=== PATIENT | male | born 1940 | race Caucasian/White ===

== ENCOUNTER 2018-09-12 13:31 | Inpatient (IN) ==
[2018-09-12] MEDS ORDERED: Isovue-370 500 ML BOTTLE IVP ONE (13:41)
--- NOTE | 2018-09-12 13:46 | Emergency Department Note ---
Disposition Clinical Impression: Syncope Qualifiers: Syncope type: unspecified Qualified Code(s): R55 - Syncope and collapse Disposition: Still a Patient General Adult HPI - General Chief complaint: ED Shortness of Breath/Dyspnea Stated complaint: JOSIE Time Seen by Provider: 09/12/18 13:41 Nursing Notes Reviewed: Yes Vital Signs Reviewed: Yes - History of Present Illness HPI Narrative: ED ATTESTATION NOTE: I examined this patient and my medical decision-making was reviewed with the Resident Physician/INTERVENTIONAL SALE CONSULTANT/PA/Student. I have personally performed a face to face evaluation on this patient & I agree with the documented findings, disposition and treatment plan as described except to the extent set forth below. Patient was seen with emergency medicine resident Dr. COURT HANSON please see copy of his note for details of this encounter Briefly: 78-year-old male by EMS from private home sick blood so in the shower this morning. Complains of right hip pain struck his head he is on blood thinners for atrial fibrillation. Also hypertension on oxygen chronically however he saw hypoxic in the ED if with supplemental O2 which would increase. He is nonfocal neurologically. External signs of lower extremity internal/external rotation are limited shortening. Patient be getting imaging studies screening labs EKG which shows a paced rhythm with occasional PVC but no acute ischemic changes. Admission is strongly anticipated. Providing 40 min mses critical care service this patient. Rule out pulmonary embolism as a potential cause for hypotension and hypoxia with loss of consciousness. Disposition pending. - Related Data Home Medications Medication Instructions Recorded Confirmed Aspirin [Lo-Dose Aspirin EC] 81 mg PO DAILY 04/03/17 04/03/17 Atorvastatin [Lipitor] 40 mg PO HS 04/03/17 04/03/17 Cinacalcet [Sensipar] 30 mg PO DAILY 04/03/17 04/03/17 Dorzolamide/Timolol [Cosopt] 1 drop BOTH EYES TID 04/03/17 04/03/17 Lantus Solostar 20 unit SQ DAILY 04/03/17 04/03/17 Metoprolol Tartrate [Lopressor] 12.5 mg PO BID 04/03/17 04/03/17 Novolog Flexpen 5 units SQ BID 04/03/17 04/03/17 Omeprazole 40 mg PO DAILY 04/03/17 04/03/17 Uloric 80 mg PO DAILY 04/03/17 04/03/17 Allergies Allergy/AdvReac Type Severity Reaction Status Date / Time simvastatin AdvReac Intermediate Cramping Verified 04/03/17 15:30 of the Muscles allopurinol AdvReac Mild Cramping Verified 04/03/17 15:27 of the Muscles alteplase AdvReac Mild Cramping Verified 04/03/17 15:27 of the Muscles fenofibrate AdvReac Mild Cramping Verified 04/03/17 15:29 of the Muscles Past Medical History - Past Medical History Medical history: Reports: arthritis, cardiomyopathy, CHF, coronary artery disease, diabetes, dialysis, glaucoma, hyperlipidemia, hypertension, renal disease, syncope - Social History Smoking Status: Former smoker
--- NOTE | 2018-09-12 13:46 | Emergency Department Note ---
Disposition Clinical Impression: Pulmonary fibrosis, ESRD (end stage renal disease), Elevated troponin Syncope Qualifiers: Syncope type: unspecified Qualified Code(s): R55 - Syncope and collapse Dyspnea Qualifiers: Dyspnea type: shortness of breath Qualified Code(s): R06.02 - Shortness of b reath Disposition: Admitted As Inpatient Condition: Fair Referrals: Yoandy Martino [Primary Care Provider] - Forms: ED Satisfaction Letter SOB HPI - General Chief Complaint: ED Shortness of Breath/Dyspnea Stated Complaint: JOSIE Time Seen by Provider: 09/12/18 13:41 Source: patient Mode of arrival: EMS Limitations: no limitations Nursing Notes Reviewed: Yes Vital Signs Reviewed: Yes - History of Present Illness 78-year-old male history of pulmonary fibrosis on 4 L continuous followed by pulmonology, pacemaker placement with atrial fibrillation on anticoagulation who presents with a complaint of syncope and shortness of breath. Reports worsening shortness of breath over the last 3 weeks. He is experiencing worsening exe rtional dyspnea noting to desaturate down to approximately 65% with any type of movement. He has increased his oxygen to 5 L at home with only a mild improvement. Today he was showering and reports he passed out. Witnessed by his . States he slumped forward. He did not fall. Believes this lasted for just several seconds. Denies any chest pain. No history of DVT or PE. He was given 1 DuoNeb treatment in route which she reports improved his symptoms somewhat. No other complaints. Pt Subjective Complaint: shortness of breath Onset (ago): week(s) Context: recent illness Severity: severe Consistency/Duration: intermittent Improves with: rest Worsens with: exertion Known history of: other (Pulmonary fibrosis) Associated symptoms: Reports: cough, sputum production, syncope. Denies: chest pain, fever Treatment prior to arrival: bronchodilator Cough present: Yes Cough Description: Involuntary Cough Frequency: Intermittent Sputum production: Yes Sputum Amount: Small Sputum Color: White - Related Data Home oxygen amount: 4 liters Home Medications Medication Instructions Recorded Confirmed Aspirin [Lo-Dose Aspirin EC] 81 mg PO DAILY 04/03/17 09/12/18 Atorvastatin [Lipitor] 40 mg PO DAILY 04/03/17 09/12/18 Cinacalcet [Sensipar] 30 mg PO DAILY 04/03/17 09/12/18 Febuxostat [Uloric] 80 mg PO DAILY 04/03/17 09/12/18 Insulin ASPART [NovoLOG] 5 unit SQ TIDWM 04/03/17 09/12/18 Omeprazole [PriLOSEC] 40 mg PO DAILY 04/03/17 09/12/18 Apixaban [Eliquis] 2.5 mg PO BID 09/12/18 09/12/18 Latanoprost [Xalatan] 1 drop BOTH EYES HS 09/12/18 09/12/18 Multivitamin,Stress Formula/Zn 1 tab PO DAILY 09/12/18 09/12/18 [Stress B with Zinc Tablet] Allergies Allergy/AdvReac Type Severity Reaction Status Date / Time simvastatin AdvReac Intermediate Cramping Verified 04/03/17 15:30 of the Muscles allopurinol AdvReac Mild Cramping Verified 04/03/17 15:27 of the Muscles alteplase AdvReac Mild Cramping Verified 04/03/17 15:27 of the Muscles fenofibrate AdvReac Mild Cramping Verified 04/03/17 15:29 of the Muscles NAG Allergy See Uncoded 09/12/18 13:47 Comments All systems ED: reviewed and negative except as stated. Constitutional: Denies: fever, chills Cardiovascular: Denies: chest pain Respiratory: Reports: cough, dyspnea, sputum production Gastrointestinal: Denies: abdominal pain, nausea, vomiting, diarrhea Neurological: Denies: headache Past Medical History - Past Medical History Attestation: Yes The following information was validated with the patient. Source: patient Medical history: Reports: arthritis, cardiomyopathy, CHF, coronary artery dise ase, diabetes, dialysis, glaucoma, hyperlipidemia, hypertension, renal disease, syncope - Social History Smoking Status: Former smoker Physical Exam - General Limitations: no limitations General appearance: alert, in no apparent distress - Head Head exam: atraumatic, normocephalic, normal inspection - Eye Eye exam: Present: normal appearance - ENT ENT exam: normal exam - Neck Neck exam: Present: normal inspection, full ROM - Chest Chest inspection: Present: normal inspection, symmetric chest wall rise - Respiratory Respiratory exam: Present: normal lung sounds bilaterally - Cardiovascular Cardiovascular exam: Present: regular rate, normal rhythm, normal heart sounds - Abdominal Exam Abdominal exam: Present: soft, Non-Tender. Absent: tenderness, distention, guarding, rigidity - Extremities Exam Extremities exam: Present: normal inspection, full ROM - Expanded Upper Extremity Exam Shoulder exam: Present: normal inspection, full ROM Arm exam: Present: normal inspection, full ROM Elbow exam: Present: normal inspection, full ROM Forearm/Wrist exam: Present: normal inspection, full ROM Hand exam: Present: normal inspection, full ROM - Expanded Lower Extremity Exam Hip/Pelvis exam: Present: normal inspection, full ROM Upper leg exam: Present: normal inspection, full ROM Knee exam: Present: normal inspection, full ROM Lower leg exam: Present: normal inspection, full ROM Ankle exam: Present: normal inspection, full ROM Foot/toe exam: Present: normal inspection, full ROM - Neurological Exam Neurological exam: Present: alert, other (GCS 15, no focal deficits, moves all extremities equally, follows commands) - Skin Skin exam: Present: warm, dry Course Course Narrative: Patient seen and examined. Vital signs reviewed. Alert and appropriate here. Did have to increase his oxygen requirement here to 6 L. Plan for an EKG, CT head given his fall on anticoagulation, CTA of the chest given worsening hypoxia as well as labs and likely admission. - Reevaluation(s) Reevaluation #1: Imaging labs reviewed. Negative for acute pathology. CT head does not demonstrate a partial fracture previous. CTA with evidence of pulmonary fibrosis however no pulmonary embolism. Labs reveal end-stage renal disease with a creatinine of 4.3 without collecting line abnormalities. Also noted to have a troponin of 0.06 without ischemic findings on EKG. Aspirin given. Admission to the hospitalist for increased oxygen requirement. - Consultations Consultation #1: Discussed this case with the on-call machine shorthand reporter Dr. Wasserman given the patient's underlying ESRD and dialysis requirement. Electrolytes are normal. They will follow the patient in the hospital. Vital Signs Temperature 98.1 F 09/12/18 13:41 Pulse Rate 73 09/12/18 13:41 Respiratory Rate 18 09/12/18 13:41 Blood Pressure 141/76 09/12/18 13:41 O2 Sat by Pulse Oximetry 96 09/12/18 13:41 Temperature 98.1 F 09/12/18 13:41 Pulse Rate 74 09/12/18 16:07 Respiratory Rate 16 09/12/18 16:07 Blood Pressure 140/66 09/12/18 16:07 O2 Sat by Pulse Oximetry 98 09/12/18 16:07 Oxygen Delivery Oxygen Delivery Nasal Cannula Shortness of Breath/Dyspnea - [facility] Narrative Medical decision making narrative: 78-year-old male presenting with increased shortness of breath and oxygen requirement with a syncopal episode and fall 3 days ago. He is alert and nonfocal here. He is on 6 L nasal cannula currently. Imaging labs reviewed. Noted to have interstitial lung disease on CT. Labs reviewed with a troponin of 0.06 in the setting of renal failure. Patient given DuoNeb treatments with improvement of his symptoms. Patient admitted to the hospitalist service. - Lab Data Lab results reviewed: Yes I reviewed the patient's lab results. Result diagrams: 09/12/18 14:05 09/12/18 14:05 Lab Results 09/12/18 09/12/18 09/12/18 Range/Units 14:05 14:05 14:05 WBC 12.4 H (4.3-11.1) K/mcL RBC 3.39 L (4.19-5.50) M/mcL Hgb 10.6 L (12.9-16.9) g/dL Hct 32.5 L (37.5-50.1) % MCV 95.9 (83.0-100.0) fL MCH 31.3 (28.0-33.3) pg MCHC 32.6 (31.6-35.5) g/dL RDW 13.9 (11.5-14.5) % Plt Count 191 (140-400) K/mcL MPV 8.9 L (9.4-12.4) fL Immature Gran % 0.5 (0-4) % Seg Neutrophils % 78.2 % Lymphocytes % 10.3 % Monocytes % 6.2 % Eosinophils % 4.3 % Basophils % 0.5 % Neutrophils # 9.7 H (1.6-8.9) K/mcL Lymphocytes # 1.3 (0.6-4.6) K/mcL Monocytes # 0.8 (0.0-1.3) K/mcL Eosinophils # 0.5 (0.0-0.6) K/mcL Basophils # 0.1 (0.0-0.2) K/mcL PT 18.2 H (9.4-12.1) Seconds INR 1.6 Sodium 139 (136-145) mEq/L Potassium 4.2 (3.5-5.1) mEq/L Chloride 97 L (98-107) mEq/L Carbon Dioxide 28 (23-29) mEq/L BUN 36 H (8-23) mg/dL Creatinine 4.33 H (0.70-1.30) mg/dL Est GFR ( Amer) 16 L (> 60) Est GFR (Non-Af Amer) 13 L (> 60) BUN/Creatinine Ratio 8 (6-26) Glucose 199 H (70-105) mg/dL Calculated Osmolality 302 H (280-300) Calcium 9.4 (8.6-10.3) mg/dL Troponin I 0.06 H* (< 0.04) ng/mL B-Natriuretic Peptide (Less than 100) pg/mL Urine Color (Yellow) Urine Clarity (Clear) Urine pH (5.0-8.0) pH Units Ur Specific Sharon (1.010-1.025) Urine Protein (Neg-Trace) mg/dL Urine Glucose (UA) (Normal) mg/dL Urine Ketones (Negative) mg/dL Urine Blood (Negative) Urine Nitrite (Negative) Urine Bilirubin (Negative) Urine Urobilinogen (Normal) mg/dL Ur Leukocyte Esterase (Negative) Urine Microscopic RBC (0-3) per hpf Urine Microscopic WBC (0-3) per hpf Ur Squamous Epith Cells (None-Few) per lpf Urine Bacteria (None-Few) per hpf Hyaline Casts (None-Few) per lpf 09/12/18 09/12/18 Range/Units 14:05 14:46 WBC (4.3-11.1) K/mcL RBC (4.19-5.50) M/mcL Hgb (12.9-16.9) g/dL Hct (37.5-50.1) % MCV (83.0-100.0) fL MCH (28.0-33.3) pg MCHC (31.6-35.5) g/dL RDW (11.5-14.5) % Plt Count (140-400) K/mcL MPV (9.4-12.4) fL Immature Gran % (0-4) % Seg Neutrophils % % Lymphocytes % % Monocytes % % Eosinophils % % Basophils % % Neutrophils # (1.6-8.9) K/mcL Lymphocytes # (0.6-4.6) K/mcL Monocytes # (0.0-1.3) K/mcL Eosinophils # (0.0-0.6) K/mcL Basophils # (0.0-0.2) K/mcL PT (9.4-12.1) Seconds INR Sodium (136-145) mEq/L Potassium (3.5-5.1) mEq/L Chloride (98-107) mEq/L Carbon Dioxide (23-29) mEq/L BUN (8-23) mg/dL Creatinine (0.70-1.30) mg/dL Est GFR ( Amer) (> 60) Est GFR (Non-Af Amer) (> 60) BUN/Creatinine Ratio (6-26) Glucose (70-105) mg/dL Calculated Osmolality (280-300) Calcium (8.6-10.3) mg/dL Troponin I (< 0.04) ng/mL B-Natriuretic Peptide 709 H (Less than 100) pg/mL Urine Color Yellow (Yellow) Urine Clarity Clear (Clear) Urine pH 8.0 (5.0-8.0) pH Units Ur Specific Sharon 1.005 L (1.010-1.025) Urine Protein >=300 H (Neg-Trace) mg/dL Urine Glucose (UA) 100 H (Normal) mg/dL Urine Ketones Negative (Negative) mg/dL Urine Blood Negative (Negative) Urine Nitrite Negative (Negative) Urine Bilirubin Negative (Negative) Urine Urobilinogen Normal (Normal) mg/dL Ur Leukocyte Esterase Negative (Negative) Urine Microscopic RBC 0-3 (0-3) per hpf Urine Microscopic WBC 0-3 (0-3) per hpf Ur Squamous Epith Cells None Seen (None-Few) per lpf Urine Bacteria None Seen (None-Few) per hpf Hyaline Casts None Seen (None-Few) per lpf - Radiology Data Radiology results reviewed: Yes I reviewed the patient's radiology results. Chest CTA 09/12/18 13:41 IMPRESSION: 1. No evidence of pulmonary embolism 2. Chronic interstitial lung disease/pulmonary fibrosis similar to the comparison exam D/ / Demarcus Cunningham MD / Demarcus Cunningham MD Interpreting Provider: Demarcus Cunningham MD Chest X-Ray 09/12/18 13:41 IMPRESSION: Questionable nondisplaced fracture of the proximal right femur. CT imaging is recommended for complete assessment. Chronic pulmonary interstitial fibrosis. D/ / 09/12/2018 14:32:28 Stephen Wakefield MD / lauren Interpreting Provider: Stephen Wakefield MD Head CT 09/12/18 13:41 IMPRESSION: No acute intracranial abnormality. Sequela of chronic small vessel ischemic disease of the brain. No acute osseous injury of the pelvis or right hip. Enlarged prostate gland with diffuse bladder wall thickening compatible with incomplete distention and chronic bladder outlet obstruction. D/ / 09/12/2018 16:13:17 Stephen Wakefield MD / esteban Interpreting Provider: Stephen Wakefield MD Hip CT 09/12/18 13:41 IMPRESSION: No acute intracranial abnormality. Sequela of chronic small vessel ischemic disease of the brain. No acute osseous injury of the pelvis or right hip. Enlarged prostate gland with diffuse bladder wall thickening compatible with incomplete distention and chronic bladder outlet obstruction. D/ / 09/12/2018 16:13:17 Stephen Wakefield MD / esteban Interpreting Provider: Stephen Wakefield MD Hip X-Ray 09/12/18 13:42 IMPRESSION: Questionable nondisplaced fracture of the proximal right femur. CT imaging is recommended for complete assessment. Chronic pulmonary interstitial fibrosis. D/ / 09/12/2018 14:32:28 Stephen Wakefield MD / lauren Interpreting Provider: Stephen Wakefield MD - EKG Data EKG attestation: Yes I reviewed and interpreted this EKG. EKG results narrative: EKG demonstrates an atrial paced rhythm with PVCs with a rate of 85 bpm. Left axis deviation. Prolonged QRS ration of 134. Other intervals normal. Poor R wave progression. No gross ST elevations or depressions. No acute ischemic findings. No significant changes from previous EKG dated 08/09/12. Rubi - Rubi Situation: Demographics, MOA Background: Presenting Complaint, Relevant PMH, Meds, & Allergies Assessment: Vital Signs, Course and respsone to treatment, Exam Concerns, Patient/Family Expectation, Pertinant Lab Results Recommendation: Barrier(s) to disposition, Recommendation based on pending studies, treatments, or consults Rubi Report Given to: Dr. Tory Venegas Repor Time: 16:48
[2018-09-12] MEDS ORDERED: Ipratropium/Albuterol Neb 3 ML IH ONE (13:49)
[2018-09-12 14:18] LABS: Basophils # 0.1 K/mcL (0.0-0.2); Basophils % 0.5 %; Eosinophils # 0.5 K/mcL (0.0-0.6); Eosinophils % 4.3 %; Hematocrit 32.5 % (37.5-50.1); Hemoglobin 10.6 g/dL (12.9-16.9); Immature Granulocytes % 0.5 % (0-4); Lymphocytes # 1.3 K/mcL (0.6-4.6); Lymphocytes % 10.3 %; Mean Corpuscular HGB Conc 32.6 g/dL (31.6-35.5); Mean Corpuscular Hemoglobin 31.3 pg (28.0-33.3); Mean Corpuscular Volume 95.9 fL (83.0-100.0); Mean Platelet Volume 8.9 fL (9.4-12.4); Monocytes # 0.8 K/mcL (0.0-1.3); Monocytes % 6.2 %; Neutrophils # 9.7 K/mcL (1.6-8.9); Platelet Count 191 K/mcL (140-400); Red Blood Count 3.39 M/mcL (4.19-5.50); Red Cell Distribution Width 13.9 % (11.5-14.5); Segmented Neutrophils % 78.2 %
[2018-09-12 14:26] LABS: INR 1.6; Prothrombin Time 18.2 Seconds (9.4-12.1)
[2018-09-12 14:41] LABS: Calcium 9.4 mg/dL (8.6-10.3); Potassium 4.2 mEq/L (3.5-5.1)
[2018-09-12 14:46] LABS: Troponin I 0.06 ng/mL (< 0.04)
[2018-09-12] MEDS ORDERED: Aspirin 325 MG TABLET PO ONE (14:52)
[2018-09-12 14:56] LABS: Bilirubin,Urine Negative (Negative); Blood,Urine Negative (Negative); Clarity,Urine Clear (Clear); Color,Urine Yellow (Yellow); Glucose,Urine (UA) 100 mg/dL (Normal); Ketones,Urine Negative (Negative); Leukocyte Esterase,Urine Negative (Negative); Nitrite,Urine Negative (Negative); Protein,Urine >=300 mg/dL (Neg-Trace); Specific Gravity,Urine 1.005 (1.010-1.025); Urobilinogen,Urine Normal (Normal)
[2018-09-12 14:59] LABS: Bacteria,Urine None Seen per hpf (None-Few); Hyaline Casts,Urine None Seen per lpf (None-Few); RBC,Urine 0-3 per hpf (0-3); Squamous Epithelial Cell,Urine None Seen per lpf (None-Few); WBC,Urine 0-3 per hpf (0-3)
[2018-09-12] MEDS ORDERED: Naloxone 0.4 MG/ML INJ IVP PRN (16:57)
[2018-09-12] MEDS ORDERED: D5% in Water 1,000 ML IVC PRN (17:00)
[2018-09-12] MEDS ORDERED: Dextrose Gel 15 GM/37.5 ML TUBE PO PRN ×2 (17:00)
[2018-09-12] MEDS ORDERED: *HR* Dextrose 50 % in Water (Syg) 50 ML SYRINGE IVP PRN (17:00)
[2018-09-12] MEDS ORDERED: predniSONE 20 MG TABLET PO ONE (17:03)
--- NOTE | 2018-09-12 17:47 | Internal Med History&Physical ---
Date of Encounter: 09/12/18 Time of Encounter: 17:39 Internal Medicine - H&P: HPI Chief complaint: Shortness of breath Admitted From: Home Plans for Post Hospital Care: Home History of present illness: Mr. Templeton is a 78 year old male with ESRD on HD MWF, DM, Pulmonary fibrosis, chronic respiratory failure on home O2, CAD, Afib with PCM on anticoagulation Patient is seen in company of his He reports he has been having recurrent falls for the past year, as well as tremors. His shortness of breath has been worsening for the past 3 months, with minimal exertion. His O2 saturation has been dropping even with his 4L of home O2 on minimal exertion, and basic house chores and self care has become more difficult. Once he is exerted, he begins to be tremulous and confused, sometimes having urinary incontinence. He is not unconscious during these episodes and there is no tongue biting or post-ictal confusion or amnesia. She states it does not look life a convulsion, but it is worrisome. This morning, his SOB got worse and while taking a shower to come to the ER, he slumped and fell in the shower and she thinks he might have hit his head. he also had a fall in the past week where he landed on his hip, he has had at least 3 falls last year. She denies fever or chills, he has no cough, he has no sick contacts, no worsening leg edema, he has been compliant with medications and HD. He denies chest pain , no n/v/d. Patient denies illicit drug use. He is DNR-CC Work up in ER showed mild leukocytosis , HB at baseline, BUN/Cr is at his baseline, troponin 0.06 (paperwork from prior ER visit for SOB at [facility] 07/2018 showed similar results). Head CT/Hip CT, Chest CTA were unremarkable for new acute findings. The patient will be admitted for acute on chronic respiratory failure likely secondary to PF flare, Syncope and tremulousness Past Med Surg Social Fam HX - Past Medical History Medical history: arthritis, cardiomyopathy, CHF, coronary artery disease, diabetes, dialysis, glaucoma, hyperlipidemia, hypertension, renal disease, syncope Additional medical history: MWF dialysis Psychiatric history: no psych history - Past Surgical History Additional surgical history: toe amputations. carpal tunnel release. trigger finger. 3 Fistulagrams. Left arm fistula - Social History Smoking Status: Former smoker Smokeless Tobacco Status: No Alcohol use: none Drug use: none - Family History Mother Adopted: No Family Member Ethnicity: Non- Living Status: Hx Family Cardiac Disorders: Yes (HTN) Hx Family Respiratory Disorders: No Hx Family Cancer: No Hx Family GI Disorders: No Hx Family Endocrine Disorder: No Hx Family Neuromuscular Disorders: No Hx Family Neurologic Disorders: No Hx Family HEENT Disorders: No Hx Family Autoimmune Disorders: No Internal Medicine - H&P: Meds Aspirin [Lo-Dose Aspirin EC] 81 mg PO DAILY 04/03/17 [History] Atorvastatin [Lipitor] 40 mg PO DAILY 04/03/17 [History] Cinacalcet [Sensipar] 30 mg PO DAILY 04/03/17 [History] Febuxostat [Uloric] 80 mg PO DAILY 04/03/17 [History] Insulin ASPART [NovoLOG] 5 unit SQ TIDWM 04/03/17 [History] Omeprazole [PriLOSEC] 40 mg PO DAILY 04/03/17 [History] Apixaban [Eliquis] 2.5 mg PO BID 09/12/18 [History] Latanoprost [Xalatan] 1 drop BOTH EYES HS 09/12/18 [History] Multivitamin,Stress Formula/Zn [Stress B with Zinc Tablet] 1 tab PO DAILY 09/12/18 [History] Allergy/AdvReac Type Severity Reaction Status Date / Time simvastatin AdvReac Intermediate Cramping Verified 04/03/17 15:30 of the Muscles allopurinol AdvReac Mild Cramping Verified 04/03/17 15:27 of the Muscles alteplase AdvReac Mild Cramping Verified 04/03/17 15:27 of the Muscles fenofibrate AdvReac Mild Cramping Verified 04/03/17 15:29 of the Muscles NAG Allergy See Uncoded 09/12/18 13:47 Comments All Systems PM: A 10-system review of systems was performed and is negative for pertinent findings except as documented above in the HPI. - Constitutional Constitutional: as per HPI - EENT Eyes: as per HPI Ears: as per HPI Nose, mouth and throat: as per HPI - Cardiovascular Cardiovascular ROS IM: as per HPI - Respiratory Respiratory: as per HPI - Gastrointestinal Gastrointestinal: as per HPI - Musculoskeletal Musculoskeletal ROS IM: as per HPI - Integumentary Integumentary IM: as per HPI - Neurological Neurological ROS: as per HPI - Hematologic/Lymphatic Hematologic/Lymphatic: as per HPI - Constitutional Vitals: Temp Pulse Resp BP Pulse Ox 98.1 F 74 16 140/66 98 09/12/18 13:41 09/12/18 16:07 09/12/18 16:07 09/12/18 16:07 09/12/18 16:07 General appearance: Present: A&O X 3, pleasant, no acute distress, obese Exam: see below - Head Head exam: Present: atraumatic - Eye Eye exam: Present: PERRL, conjuntiva pink, sclera anicteric - ENT ENT exam: Present: mucous membranes moist - Neck Neck exam general surgery: Present: normal inspection Additional comments: Carotid bruit on the R - Respiratory Respiratory exam: Present: rales (inspiratory fine crackles), tachypnea. Absent: stridor, wheezes - Cardiovascular Cardiovascular exam: Present: irregular rhythm, +S1, +S2. Absent: diastolic murmur, gallop, rubs, systolic murmur - GI/Abdominal GI/Abdominal exam: Present: normal bowel sounds, soft, no peritoneal signs. Absent: distended, tenderness - Extremities Exam Extremities exam: Present: pedal edema (trace bilateral piting pedal edema, chronic venous stasis changes), warm, radial pulses palpable and symmetrical. Absent: calf tenderness, cyanotic - Neurological Exam Neurological exam: Present: alert, CN II-XII intact, oriented X3, no focal deficits. Absent: pronater drift, facial droop, speech deficit - Skin Skin exam: Present: dry, intact Internal Med - H&P Results - Labs CBC & Chem 7: 09/12/18 14:05 09/12/18 14:05 Labs: Short CBC 09/12/18 Range/Units 14:05 WBC 12.4 H (4.3-11.1) K/mcL Hgb 10.6 L (12.9-16.9) g/dL Hct 32.5 L (37.5-50.1) % Plt Count 191 (140-400) K/mcL Neutrophils # 9.7 H (1.6-8.9) K/mcL BMP 09/12/18 14:05 Sodium 139 Potassium 4.2 Chloride 97 L Carbon Dioxide 28 BUN 36 H Creatinine 4.33 H Glucose 199 H Calcium 9.4 Cardiac Enzymes 09/12/18 Range/Units 14:05 Troponin I 0.06 H* (< 0.04) ng/mL Urine 09/12/18 Range/Units 14:46 Urine Color Yellow (Yellow) Urine Clarity Clear (Clear) Urine pH 8.0 (5.0-8.0) pH Units Ur Specific [place] 1.005 L (1.010-1.025) Urine Protein >=300 H (Neg-Trace) mg/dL Urine Glucose (UA) 100 H (Normal) mg/dL - Impressions ITS Impressions Chest CTA 09/12/18 13:41 IMPRESSION: 1. No evidence of pulmonary embolism 2. Chronic interstitial lung disease/pulmonary fibrosis similar to the comparison exam D/ / Demarcus Cunningham MD / Demarcus Cunningham MD Interpreting Provider: Demarcus uCnningham MD Chest X-Ray 09/12/18 13:41 IMPRESSION: Questionable nondisplaced fracture of the proximal right femur. CT imaging is recommended for complete assessment. Chronic pulmonary interstitial fibrosis. D/ / 09/12/2018 14:32:28 Stephen Wakefield MD / [facility] Interpreting Provider: Stephen Wakefield MD Head CT 09/12/18 13:41 IMPRESSION: No acute intracranial abnormality. Sequela of chronic small vessel ischemic disease of the brain. No acute osseous injury of the pelvis or right hip. Enlarged prostate gland with diffuse bladder wall thickening compatible with incomplete distention and chronic bladder outlet obstruction. D/ / 09/12/2018 16:13:17 Stephen Wakefield MD / [facility] Interpreting Provider: Stephen Wakefield MD Hip CT 09/12/18 13:41 IMPRESSION: No acute intracranial abnormality. Sequela of chronic small vessel ischemic disease of the brain. No acute osseous injury of the pelvis or right hip. Enlarged prostate gland with diffuse bladder wall thickening compatible with incomplete distention and chronic bladder outlet obstruction. D/ / 09/12/2018 16:13:17 Stephen Wakefield MD / [facility] Interpreting Provider: Stephen Wakefield MD Hip X-Ray 09/12/18 13:42 IMPRESSION: Questionable nondisplaced fracture of the proximal right femur. CT imaging is recommended for complete assessment. Chronic pulmonary interstitial fibrosis. D/ / 09/12/2018 14:32:28 Stephen Wakefield MD / [facility] Interpreting Provider: Stephen Wakefield MD - Assessment and plan (1) Leukocytosis Current Visit: Yes Status: Acute Assessment and plan: Etiology unknown at this time Patient recently completed a one week course of steroids (Jul 2018) He has no fever or chills, no rash, no evidence of infection No indication for antibiotics Continue to monitor Qualifiers: Leukocytosis type: unspecified Qualified Code(s): D72.829 - Elevated white blood cell count, unspecified (2) Atrial fibrillation Current Visit: Yes Status: Chronic Assessment and plan: HR controlled Continue home meds Anticoagulated with eliquis, continue same Qualifiers: Atrial fibrillation type: chronic Qualified Code(s): I48.2 - Chronic atrial fibrillation (3) CHF (congestive heart failure) Current Visit: Yes Status: Chronic Assessment and plan: Patient stated hx of CHF No records here Obtain ECHO No pulm edema, he has trace pedal edema, BNP 709 He does not take lasix at home Continue fluid restriction, will give lasix IV as patient still makes urine Follow ECHO report Qualifiers: Heart failure type: unspecified Heart failure chronicity: unspecified Qualified Code(s): I50.9 - Heart failure, unspecified (4) CAD (coronary artery disease) Current Visit: Yes Status: Chronic Assessment and plan: Continue ASA, Statin Qualifiers: Coronary Disease-Associated Artery/Lesion type: [place] artery [place] vs. transplanted heart: [place] heart Associated angina: without angina Qualified Code(s): I25.10 - Atherosclerotic heart disease of [place] coronary artery without angina pectoris (5) Syncope Current Visit: Yes Status: Acute Assessment and plan: Likley due to episodes of worsening hypoxia EKG noted, PVC, LAD, no ST segment changes or TWI Obtain ECHO patient has a carotid bruit, obtain carotid USS head CT unremarkable Patient with no neuro deficits at this time Qualifiers: Syncope type: unspecified Qualified Code(s): R55 - Syncope and collapse (6) Pulmonary fibrosis Current Visit: Yes Status: Chronic Assessment and plan: Patient with known Pulm fibrosis with flare On chronic home O2, has been having increasing O2 requirement Continue O2 Obtain ABG, patient with metanolic alkalosis Start on prednisone po NO indications for steroids at this time Duonebs q4h MELODIE Continuous pulse Ox May need requalification for home O2 prior to discharge Pulm eval if patient is not improving (7) ESRD (end stage renal disease) Current Visit: Yes Status: Chronic Assessment and plan: HD per schedule No current emergent indication for HD, however, renal has been consulted by ER Continue home meds (8) Elevated troponin Current Visit: Yes Status: Chronic Assessment and plan: Chronic troponin from 07/2018 ER visit was 0.054 troponin here 0.06 patient has no chest pain but had syncope Follow ECHO and repeat troponin (9) Diabetes mellitus Current Visit: Yes Status: Chronic Assessment and plan: FS ACHS SSI ADA diet Levemir HS Qualifiers: Diabetes mellitus type: type 2 Diabetes mellitus joint terminal attack controller insulin use: with fpc use Diabetes mellitus complication status: with kidney complications Diabetes mellitus complication detail: with chronic kidney disease Chronic kidney disease stage: on chronic dialysis Qualified Code(s): E11.22 - Type 2 diabetes mellitus with diabetic chronic kidney disease; N18.6 - End stage renal disease; Z79.4 - skilled nursing (current) use of insulin; Z99.2 - Dependence on renal dialysis (10) Frequent falls Current Visit: Yes Status: Acute Assessment and plan: fall precautions PTOT eval - Time Spent With Patient Total time spent is greater than 50% in coordination of care (as documented) at patient's floor/unit and/or counseling patient:
[2018-09-12] MEDS: Ipratropium/Albuterol Neb 3 ML IH SCH (20:42)
[2018-09-12] MEDS ORDERED: Insulin DETEMIR 100 UNIT/ML X5UNITS SQ SCH (21:00)
[2018-09-12] MEDS: Insulin LISPRO 300 UNITS/3 ML VIAL SQ SCH (21:14)
[2018-09-12] MEDS: Apixaban 2.5 MG TABLET PO SCH (21:14)
[2018-09-12] MEDS: Latanoprost 2.5 ML BOTTLE BOTH EYES SCH (21:16)
[2018-09-13] MEDS: Ipratropium/Albuterol Neb 3 ML IH SCH ×7 (00:22→23:19)
--- NOTE | 2018-09-13 01:30 | Event Note ---
Date of Encounter: 09/12/18 Time of Encounter: 21:45 Alerted by pts. nurse JANUARY Anderson that the pts. troponin was 0.06, unchanged from the previous troponin of 0:06. Patient admitted due to syncope likely due to hypoxia, leukocytosis, and acute on chronic respiratory failure likely secondary to PF flare. Echocardiogram ordered. Pt. asymptomatic w/o CP or SOB. Nurse instructed to monitor patient closely overnight and alert me immediately of any adverse changes.
[2018-09-13 06:24] LABS: Basophils % 0.2 %; Eosinophils % 0.2 %; Hematocrit 30.3 % (37.5-50.1); Hemoglobin 9.8 g/dL (12.9-16.9); Immature Granulocytes % 0.4 % (0-4); Lymphocytes # 0.4 K/mcL (0.6-4.6); Lymphocytes % 3.8 %; Mean Corpuscular HGB Conc 32.3 g/dL (31.6-35.5); Mean Corpuscular Hemoglobin 31.5 pg (28.0-33.3); Mean Corpuscular Volume 97.4 fL (83.0-100.0); Mean Platelet Volume 8.9 fL (9.4-12.4); Monocytes # 0.1 K/mcL (0.0-1.3); Monocytes % 0.7 %; Neutrophils # 9.8 K/mcL (1.6-8.9); Platelet Count 173 K/mcL (140-400); Red Blood Count 3.11 M/mcL (4.19-5.50); Red Cell Distribution Width 14.2 % (11.5-14.5); Segmented Neutrophils % 94.7 %
[2018-09-13 06:32] LABS: INR 1.5; Prothrombin Time 17.3 Seconds (9.4-12.1)
[2018-09-13 06:44] LABS: Calcium 9.3 mg/dL (8.6-10.3)
[2018-09-13] MEDS: Insulin LISPRO 300 UNITS/3 ML VIAL SQ SCH ×4 (08:19→21:54)
[2018-09-13] MEDS: Apixaban 2.5 MG TABLET PO SCH ×2 (08:20→21:53)
[2018-09-13] MEDS: Vitamin B Complex/Vit C/Vit E 1 EACH TABLET PO SCH (08:20)
[2018-09-13] MEDS: predniSONE 20 MG TABLET PO SCH (08:20)
[2018-09-13] MEDS: Aspirin Enteric Coated 81 MG Tablet PO SCH (08:20)
[2018-09-13] MEDS ORDERED: Perflutren Lipid Microsphere 1.3 ML in 0.9 % Sodium Chloride 8.7 ML IVP ONE (08:54)
--- NOTE | 2018-09-13 11:48 | Internal Med Progress Note ---
Hospitalist Progress Note - Encounter Date of Encounter: 09/13/18 Time of Encounter: 11:44 - Exam Vitals: Temp Pulse Resp BP Pulse Ox 97.8 F 86 16 121/70 90 09/13/18 07:39 09/13/18 07:39 09/13/18 08:09 09/13/18 07:39 09/13/18 08:09 Exam: see below - Summary of Assessment and Plan Summary of Assessment and Plan: This is a 78 yom with pulm fibrosiss who presented with syncope x2 1)syncope: Pt has end stage pulm fibrosis, told me that his oxygenation dropped more than 20 at times i suspect this is the ause, hwoever, pt does have chest pressure, we will get a stress test, if negative, this is end stage pulm disease. --stress test --out pt monitor --if its due to end stage pulm fibrosis, pt mgiht need pallaitve care. 2)afib: cont eliquis and beta blcoker 3) hx of CHF No in CHF currenlty compensated 4)code: DNR/DNI 5)ESRD: HD per nephrolgoy 6)deiblit: PT/OT to see pt 7)dispo: await stress test and home oxygne reassement TIme: 35min - Time Spent with Patient Total time spent is greater than 50% in coordination of care (as documented) at patient's floor/unit and/or counseling patient: Internal Medicine: Result - Labs CBC & Chem 7: 09/13/18 06:11 09/13/18 06:11 Labs: Short CBC 09/12/18 09/13/18 Range/Units 14:05 06:11 WBC 12.4 H 10.4 (4.3-11.1) K/mcL Hgb 10.6 L 9.8 L (12.9-16.9) g/dL Hct 32.5 L 30.3 L (37.5-50.1) % Plt Count 191 173 (140-400) K/mcL Neutrophils # 9.7 H 9.8 H (1.6-8.9) K/mcL BMP 09/12/18 09/13/18 14:05 06:11 Sodium 139 137 Potassium 4.2 5.0 Chloride 97 L 98 Carbon Dioxide 28 28 BUN 36 H 44 H Creatinine 4.33 H 5.31 H Glucose 199 H 281 H Calcium 9.4 9.3 Cardiac Enzymes 09/12/18 09/12/18 Range/Units 14:05 20:38 Troponin I 0.06 H* 0.06 H* (< 0.04) ng/mL Urine 09/12/18 Range/Units 14:46 Urine Color Yellow (Yellow) Urine Clarity Clear (Clear) Urine pH 8.0 (5.0-8.0) pH Units Ur Specific [place] 1.005 L (1.010-1.025) Urine Protein >=300 H (Neg-Trace) mg/dL Urine Glucose (UA) 100 H (Normal) mg/dL - ABG Interpretation ABG results: PT/INR, D-dimer PT 17.3 Seconds (9.4-12.1) H 09/13/18 06:11 - Impressions Impressions Chest CTA 09/12/18 13:41 IMPRESSION: 1. No evidence of pulmonary embolism 2. Chronic interstitial lung disease/pulmonary fibrosis similar to the comparison exam D/ / Demarcus Cunningham MD / Demarcus Cunningham MD Interpreting Provider: Demarcus Cunningham MD Chest X-Ray 09/12/18 13:41 IMPRESSION: Questionable nondisplaced fracture of the proximal right femur. CT imaging is recommended for complete assessment. Chronic pulmonary interstitial fibrosis. D/ / 09/12/2018 14:32:28 Stephen Wakefield MD / [facility] Interpreting Provider: Stephen Wakefield MD Head CT 09/12/18 13:41 IMPRESSION: No acute intracranial abnormality. Sequela of chronic small vessel ischemic disease of the brain. No acute osseous injury of the pelvis or right hip. Enlarged prostate gland with diffuse bladder wall thickening compatible with incomplete distention and chronic bladder outlet obstruction. D/ / 09/12/2018 16:13:17 Stephen Wakefield MD / [facility] Interpreting Provider: Stephen Wakefield MD Hip CT 09/12/18 13:41 IMPRESSION: No acute intracranial abnormality. Sequela of chronic small vessel ischemic disease of the brain. No acute osseous injury of the pelvis or right hip. Enlarged prostate gland with diffuse bladder wall thickening compatible with incomplete distention and chronic bladder outlet obstruction. D/ / 09/12/2018 16:13:17 Stephen Wakefield MD / [facility] Interpreting Provider: Stephen Wakefield MD Hip X-Ray 09/12/18 13:42 IMPRESSION: Questionable nondisplaced fracture of the proximal right femur. CT imaging is recommended for complete assessment. Chronic pulmonary interstitial fibrosis. D/ / 09/12/2018 14:32:28 Stephen Wakefield MD / [facility] Interpreting Provider: Stephen Wakefield MD Consult Discharge Plan - Plan Referrals: oYandy Martnio [Primary Care Provider] -
--- NOTE | 2018-09-13 12:36 | Nephrology Consult Note ---
Date of Encounter: 09/13/18 Time of Encounter: 12:33 Assessment and Plan (1) ESRD (end stage renal disease) Current Visit: Yes Status: Chronic HD MWF. Renal vitamins. Renal dose medications. Renal diet. Additional dialysis and ultrafiltration as needed. No dialysis is needed today. (2) Dyspnea Current Visit: Yes Status: Acute Per the primary team. Patient has history of poorly fibrosis. He denies chest pain. He does not appear to be in fluid overload. Qualifiers: Dyspnea type: shortness of breath Qualified Code(s): R06.02 - Shortness of breath; R06.00 - Dyspnea, unspecified; R06.01 - Orthopnea (3) Diabetes mellitus Current Visit: Yes Status: Chronic Per the primary team. Qualifiers: Diabetes mellitus type: type 2 Diabetes mellitus assisted insulin use: with corporate manager use Diabetes mellitus complication status: with kidney complications Diabetes mellitus complication detail: with chronic kidney disease Chronic kidney disease stage: on chronic dialysis Qualified Code(s): E11.22 - Type 2 diabetes mellitus with diabetic chronic kidney disease; N18.6 - End stage renal disease; Z79.4 - skilled nursing (current) use of insulin; Z99.2 - Dependence on renal dialysis (4) Elevated troponin Current Visit: Yes Status: Chronic Per the primary team. He denies chest pain. (5) Pulmonary fibrosis Current Visit: Yes Status: Chronic Per the primary team. History of Present Illness - Reason for Consult Consult date: 09/13/18 end stage renal disease - Chief Complaint ESRD - History of Present Illness Mr. Al is a 78-year-old man with a history of end-stage renal disease and prominent fibrosis who presents secondary to shortness of breath. He receives dialysis Friday and Friday via a left upper arm fistula under the direction of Dr. Lundberg and receives dialysis in [place], [place]. The patient presents to the hospital secondary to dyspnea and is being managed by the hospitalist team. He is compliant with his dialysis treatments. He reports that he recently had a fistulogram at [place] about a month ago and that his fistula has been working well since. [facility] was consulted for ongoing management of his end-stage renal disease. The patient denies chest pain, nausea or vomiting. The remainder of his review of systems either negative or stable. Past Med Surg Social Fam HX - Past Medical History Medical history: arthritis, cardiomyopathy, CHF, coronary artery disease, diabetes, dialysis, glaucoma, hyperlipidemia, hypertension, renal disease, syncope Additional medical history: MWF dialysis Psychiatric history: no psych history - Past Surgical History Additional surgical history: toe amputations. carpal tunnel release. trigger finger. 3 Fistulagrams. Left arm fistula. Reversal Shoulder repairs both. Right TKR - Social History Smoking Status: Former smoker Smokeless Tobacco Status: No Alcohol use: rarely Drug use: none - Family History Mother Adopted: No Family Member Ethnicity: Non- Living Status: Age at : 74 Cause of : heart Hx Family Cardiac Disorders: Yes (HTN) Hx Family Respiratory Disorders: No Hx Family Cancer: No Hx Family GI Disorders: No Hx Family Endocrine Disorder: No Hx Family Neuromuscular Disorders: No Hx Family Neurologic Disorders: No Hx Family HEENT Disorders: No Hx Family Autoimmune Disorders: No Father Family Member Ethnicity: Non- Living Status: Age at : 72 Cause of : heart Hx Family Cardiac Disorders: Yes Hx Family Endocrine Disorder: Yes (DM) Medications and Allergies Aspirin [Lo-Dose Aspirin EC] 81 mg PO DAILY 04/03/17 [History] Atorvastatin [Lipitor] 40 mg PO DAILY 04/03/17 [History] Cinacalcet [Sensipar] 30 mg PO DAILY 04/03/17 [History] Febuxostat [Uloric] 80 mg PO DAILY 04/03/17 [History] Insulin ASPART [NovoLOG] 5 unit SQ TIDWM 04/03/17 [History] Omeprazole [PriLOSEC] 40 mg PO DAILY 04/03/17 [History] Apixaban [Eliquis] 2.5 mg PO BID 09/12/18 [History] Latanoprost [Xalatan] 1 drop BOTH EYES HS 09/12/18 [History] Multivitamin,Stress Formula/Zn [Stress B with Zinc Tablet] 1 tab PO DAILY 09/12/18 [History] Allergy/AdvReac Type Severity Reaction Status Date / Time simvastatin AdvReac Intermediate Cramping Verified 04/03/17 15:30 of the Muscles allopurinol AdvReac Mild Cramping Verified 04/03/17 15:27 of the Muscles alteplase AdvReac Mild Cramping Verified 04/03/17 15:27 of the Muscles fenofibrate AdvReac Mild Cramping Verified 04/03/17 15:29 of the Muscles NAG Allergy See Uncoded 09/12/18 13:47 Comments Review of Systems All Systems: reviewed and no additional remarkable complaints except as stated (As documented in history of present illness) Exam - Vital Signs Vital signs: Initial Vital Signs Temp Pulse Resp BP Pulse Ox 98.1 F 73 18 141/76 96 09/12/18 13:41 09/12/18 13:41 09/12/18 13:41 09/12/18 13:41 09/12/18 13:41 Vital Signs - Last 8 Hours Temp Pulse Resp BP Pulse Ox 09/13/18 08:09 16 90 09/13/18 07:39 97.8 F 86 20 121/70 91 09/13/18 05:25 97.6 F 87 17 126/69 99 Intake and Output 09/12/18 09/13/18 09/13/18 23:59 07:59 15:59 Intake Total 0 / 0 Balance 0 / 0 Intake: Oral 0 / 0 Other: Weight 63.1 kg Blood Glucose* 220 282 300 - General Appearance General appearance: well-developed, well-nourished EENT: ATNC Neck: supple Respiratory: rales (Dry rales appreciated in the lung reyes.) Cardiology: no edema, regular rate - Dialysis Access Dialysis Vascular Access: Arteriovenous Fistula (Left upper arm) thrill: Yes bruit: Yes Gastrointestinal: no tenderness Integumentary: warm and dry Neurologic: alert and oriented x3 Additional Comments: He is hard of hearing. Musculoskeletal: no cyanosis Psychiatric: mood/affect appropriate Results - Lab Results 09/13/18 06:11 09/13/18 06:11 Most recent lab results Calcium 9.3 mg/dL (8.6-10.3) 09/13/18 06:11 Consult Discharge Plan - Plan Referrals: Yoandy Martino [Primary Care Provider] -
[2018-09-13] MEDS ORDERED: 0.9 % Sodium Chloride 250 ML IVC PRN (12:43)
[2018-09-13] MEDS: Febuxostat [Uloric] 80 MG PO SCH (13:16)
[2018-09-13] MEDS ORDERED: Insulin DETEMIR 100 UNIT/ML X5UNITS SQ ONE (20:54)
[2018-09-13] MEDS ORDERED: Insulin DETEMIR 100 UNIT/ML X5UNITS SQ SCH (21:00)
[2018-09-13] MEDS: Latanoprost 2.5 ML BOTTLE BOTH EYES SCH (21:54)
[2018-09-14] MEDS ORDERED: Insulin DETEMIR 100 UNIT/ML X5UNITS SQ ONE (03:02)
--- NOTE | 2018-09-14 03:02 | Event Note ---
Date of Encounter: 09/13/18 Time of Encounter: 23:19 Alerted by pts. nurse JANUARY Rios that pt. had been given 6 units of Humalog and 10 units of Levemir. BG at the time was 370. When rechecked at 23:00, BG was 375. Instructed nurse to wait a little while to see if BG responded to long- acting Levemir and recheck in 1 hour. Recheck at 00:47 was 318. 10 units of Levemir ordered. Recheck of BG at 03:00 was 331. Another one-time order of 10 units of Levemir ordered at 03:02 w/continued instructions to keep monitoring BG Q1HR. Instructed nurse to contact me immediately of any adverse changes. Hypoglycemia protocol in place.
[2018-09-14] MEDS: Ipratropium/Albuterol Neb 3 ML IH SCH ×5 (04:22→20:11)
[2018-09-14] MEDS ORDERED: Regadenoson 0.4 MG/5 ML SYRINGE IVP ONE (05:58)
[2018-09-14] MEDS ORDERED: 0.9 % Sodium Chloride 250 ML IVC PRN (08:03)
[2018-09-14] MEDS ORDERED: 0.9 % Sodium Chloride 2,000 ML ONE (08:03)
[2018-09-14] MEDS ORDERED: 0.9 % Sodium Chloride 1,000 ML PRIME SCH (08:15)
[2018-09-14 08:19] LABS: Hematocrit 29.8 % (37.5-50.1); Hemoglobin 9.7 g/dL (12.9-16.9); Mean Corpuscular HGB Conc 32.6 g/dL (31.6-35.5); Mean Corpuscular Hemoglobin 31.5 pg (28.0-33.3); Mean Corpuscular Volume 96.8 fL (83.0-100.0); Mean Platelet Volume 9.1 fL (9.4-12.4); Platelet Count 218 K/mcL (140-400); Red Blood Count 3.08 M/mcL (4.19-5.50)
[2018-09-14 08:24] LABS: Calcium 9.4 mg/dL (8.6-10.3); Potassium 4.5 mEq/L (3.5-5.1)
[2018-09-14] MEDS: Aspirin Enteric Coated 81 MG Tablet PO SCH (08:34)
[2018-09-14] MEDS: Vitamin B Complex/Vit C/Vit E 1 EACH TABLET PO SCH (08:34)
[2018-09-14] MEDS: Apixaban 2.5 MG TABLET PO SCH ×2 (08:34→20:36)
[2018-09-14] MEDS: predniSONE 20 MG TABLET PO SCH (08:34)
[2018-09-14] MEDS: Febuxostat [Uloric] 80 MG PO SCH (08:39)
[2018-09-14] MEDS: Insulin LISPRO 300 UNITS/3 ML VIAL SQ SCH ×6 (08:41→20:36)
--- NOTE | 2018-09-14 09:08 | Discharge Summary ---
- NOTES TO OUTPATIENT PROVIDER Notes to Outpatient Provider: home health, [facility]PC for palllaitive care discussion Orders not resulted at time of discharge: Pending orders 09/14/18 07:00 SP pharm nuclear stress Routine 09/14/18 07:44 Hepatitis B Surface Antibody Stat Hepatitis B Surface Antigen Stat Date of Encounter: 09/14/18 Time of Encounter: 09:06 - Discharge Diagnosis (1) Syncope Priority: Primary Status: Acute Qualifiers: Syncope type: unspecified Qualified Code(s): R55 - Syncope and collapse Hospital course: Mr. Templeton is a 78 year old male with ESRD on HD MWF, DM, Pulmonary fibrosis, chronic respiratory failure on home O2, CAD, Afib with PCM on anticoagulation Patient is seen in company of his He reports he has been having recurrent falls for the past year, as well as tremors. His shortness of breath has been worsening for the past 3 months, with minimal exertion. His O2 saturation has been dropping even with his 4L of home O2 on minimal exertion, and basic house chores and self care has become more difficult. Once he is exerted, he begins to be tremulous and confused, sometimes having urinary incontinence. He is not unconscious during these episodes and there is no tongue biting or post-ictal confusion or amnesia. She states it does not look life a convulsion, but it is worrisome. Pt was kept in [facility] and the pt did not want a work up. Pt refused to have stress test. HE said that pallaive care was seeign the pt, and they told him to come in for evlauation to make sure that no bones were broken. He epxressed interests in hospice, but then does not want it because HD excludes hospice. At this point, we feel this is end stage lung disease from pulm fibrosis, pt doesn't want hospice, pt also doesn't want to go to rehab. Pt is being discharged. He is aware that he is at all risk again. He will go home with home healht. - Time Spent with Patient Total time spent providing and/or coordinating discharge services: - Discharge Medications Home Medications: Aspirin [Lo-Dose Aspirin EC] 81 mg PO DAILY 04/03/17 [History] Atorvastatin [Lipitor] 40 mg PO DAILY 04/03/17 [History] Cinacalcet [Sensipar] 30 mg PO DAILY 04/03/17 [History] Febuxostat [Uloric] 80 mg PO DAILY 04/03/17 [History] Insulin ASPART [NovoLOG] 5 unit SQ TIDWM 04/03/17 [History] Omeprazole [PriLOSEC] 40 mg PO DAILY 04/03/17 [History] Apixaban [Eliquis] 2.5 mg PO BID 09/12/18 [History] Latanoprost [Xalatan] 1 drop BOTH EYES HS 09/12/18 [History] Multivitamin,Stress Formula/Zn [Stress B with Zinc Tablet] 1 tab PO DAILY 09/12/18 [History] Allergies/Adverse Reactions: Allergy/AdvReac Type Severity Reaction Status Date / Time simvastatin AdvReac Intermediate Cramping Verified 04/03/17 15:30 of the Muscles allopurinol AdvReac Mild Cramping Verified 04/03/17 15:27 of the Muscles alteplase AdvReac Mild Cramping Verified 04/03/17 15:27 of the Muscles fenofibrate AdvReac Mild Cramping Verified 04/03/17 15:29 of the Muscles NAG Allergy See Uncoded 09/12/18 13:47 Comments Date of admission: 09/12/18 18:26 Primary care physician: Yoandy Martino Consults: 09/12/18 16:47 Consult to Nephrology [CONS] Stat Consulting Provider: Kidney Cassia/GIANNA/EVE/STERLING Reason for Consult: ESRD on dialysis Time Notified: 16:47 Call Completed: Yes 09/12/18 17:57 Consult to Occupational Therapy [CONS] Stat Comment: Evaluate, develop and implement POC Reason for Consult: recurrent falls Does patient have active BEDREST order?: No Is patient medically & hemodynamically stable?: Yes Consult to Physical Therapy [CONS] Stat Comment: Evaluate, develop and implement POC Reason for Consult: Recurrent falls Does patient have active BEDREST order?: No Is patient medically & hemodynamically stable?: Yes 09/12/18 19:59 Consult to Sheep Clipper [CONS] Routine Reason for SW Consult: [employer]- 4L & Nebulizers, Setup [facility] [place] [facility] for HD, HD MWF with [facility] 09/14/18 08:15 Consult to Dialysis [CONS] ONCE 09/14/18 12:45 Consult to Dialysis [CONS] QMWF 09/16/18 12:45 Consult to Dialysis [CONS] QMWF 09/18/18 12:45 Consult to Dialysis [CONS] QMWF 09/21/18 12:45 Consult to Dialysis [CONS] QMWF 09/23/18 12:45 Consult to Dialysis [CONS] QMWF 09/25/18 12:45 Consult to Dialysis [CONS] QMWF 09/28/18 12:45 Consult to Dialysis [CONS] QMWF 09/30/18 12:45 Consult to Dialysis [CONS] QMWF 10/02/18 12:45 Consult to Dialysis [CONS] QMWF - Constitutional Vitals: Temp Pulse Resp BP Pulse Ox 97.6 F 91 18 100/63 90 09/14/18 07:15 09/14/18 07:15 09/14/18 07:15 09/14/18 07:15 09/14/18 07:15 General appearance: Present: A&O X 3, pleasant, no acute distress, obese Exam: see below - Patient Status Disposition: Home Health Service Condition: Fair - Discharge Instructions Follow Up With: Yoandy Martino [Primary Care Provider] -
[2018-09-14 09:37] LABS: Hepatitis B Surface Antibody < 3.10 mIU/mL
[2018-09-14 09:47] LABS: Hepatitis B Surface Antigen Nonreactive (Nonreactive)
--- NOTE | 2018-09-14 10:10 | Nephrology Progress Note ---
Date of Encounter: 09/14/18 Time of Encounter: 10:07 - Assessment and Plan (1) ESRD (end stage renal disease) Current Visit: Yes Status: Chronic HD MWF. HD in progress for today. Renal vitamins. Renal dose medications. Renal diet. Additional dialysis and ultrafiltration as needed. (2) Pulmonary fibrosis Current Visit: Yes Status: Chronic Per the primary team. (3) Dyspnea Current Visit: Yes Status: Acute Per the primary team. Patient has history of pulmonary fibrosis. He denies ch est pain. He does not appear to be in fluid overload. Qualifiers: Dyspnea type: shortness of breath Qualified Code(s): R06.02 - Shortness of breath; R06.00 - Dyspnea, unspecified; R06.01 - Orthopnea (4) Elevated troponin Current Visit: Yes Status: Chronic Per the primary team. He denies chest pain. (5) Diabetes mellitus Current Visit: Yes Status: Chronic Per the primary team. Qualifiers: Diabetes mellitus type: type 2 Diabetes mellitus wallboard worker insulin use: with fdc use Diabetes mellitus complication status: with kidney complications Diabetes mellitus complication detail: with chronic kidney disease Chronic kidney disease stage: on chronic dialysis Qualified Code(s): E11.22 - Type 2 diabetes mellitus with diabetic chronic kidney disease; N18.6 - End stage renal disease; Z79.4 - weight shifter (current) use of insulin; Z99.2 - Dependence on renal dialysis Subjective Principal diagnosis: difficulty in breathing Interval history: Pt seen and examined during HD, tolerating well. Denies any chest pain. Admits to chronic shortness of breath. No acute events overnight. Objective - Vital Signs Vital signs: Vital Signs Temp Pulse Resp BP Pulse Ox 09/14/18 07:15 97.6 F 91 18 100/63 90 09/14/18 04:22 18 98 09/14/18 04:20 97.5 F L 81 17 109/57 100 09/14/18 00:35 97.9 F 75 19 109/61 99 09/13/18 23:20 18 95 09/13/18 22:31 90 152/77 09/13/18 22:05 93 09/13/18 20:11 18 91 09/13/18 19:59 97.6 F 85 17 175/75 93 09/13/18 16:58 97.6 F 95 18 150/74 92 09/13/18 15:37 18 96 09/13/18 11:38 18 93 Intake and Output 09/13/18 09/14/18 09/14/18 23:59 07:59 15:59 Intake Total 360 / 360 Output Total 500 / 500 450 / 450 Balance -140 / -140 -450 / -450 Intake: Oral 360 / 360 Output: Urine 500 / 500 450 / 450 Other: Meal 1 decaf coffee with creamer Percent of Meal Consumed 60% Blood Glucose* 375 266 - General Appearance General appearance: Present: well-developed, well-nourished EENT: Present: ATNC, hearing intact, vision intact Neck: Present: supple Respiratory: Present: clear Additional Comments: Diminished in bases. Cardiology: Present: no edema, normal S1, normal S2 Dialysis Vascular Access: Arteriovenous Fistula thrill: Yes bruit: Yes Gastrointestinal: Present: normoactive bowel sounds, no tenderness, no guarding Integumentary: Present: no rash, warm and dry Neurologic: Present: alert and oriented x3 Musculoskeletal: Present: no deformities, no erythema Psychiatric: Present: mood/affect appropriate, cooperative - Lab 09/14/18 07:44 09/14/18 07:44 Most recent lab results Calcium 9.4 mg/dL (8.6-10.3) 09/14/18 07:44 Consult Discharge Plan - Plan Referrals: Yoandy Martino [Primary Care Provider] - 09/22/18 8:40 am (please follow up as schedule....)
--- NOTE | 2018-09-14 11:48 | Palliative - Consult Note ---
<[address] S - Last Filed: 09/14/18 14:26> Date of Encounter: 09/14/18 Time of Encounter: 11:42 - Assessment and Plan (1) Goals of care, counseling/discussion Current Visit: Yes Status: Acute Assessment and plan: Had extensive goals of care discussion at bedside about goals of care and patient's wishes. He feels that if he does hospice that he will be sent home to and that he won't get HD. Explained to the pt that he can go home with hospice and still get HD bc he isn't going to hospice for kidney related dz. He does feel that at this time he still wishes to go home with home health and attempt rehab for now. Explained to the pt that he can change his mind at anytime and get hospice. At this time, palliative care will sign off. Please re- consult with any further issues or questions. (2) Syncope Current Visit: Yes Status: Acute Assessment and plan: Likely multifactorial secondary to worsening hypoxia/chronic lung dz vs a fib ECHO on 09/12: LVEF 60%. Mild left ventricular diastolic dysfunction. Normal right ventricular structure and function. No aortic stenosis. Moderate mitral annular calcification No mitral stenosis. No evidence of pulmonary hypertension CT head was negative, EKG negative for ST abnromalities Currently managed by primary. Qualifiers: Syncope type: unspecified Qualified Code(s): R55 - Syncope and collapse (3) Pulmonary fibrosis Current Visit: Yes Status: Chronic Assessment and plan: Known hx of pulmonary fibrosis - managed by primary (4) Dyspnea Current Visit: Yes Status: Acute Assessment and plan: Secondary to IPF Qualifiers: Dyspnea type: shortness of breath Qualified Code(s): R06.02 - Shortness of breath; R06.00 - Dyspnea, unspecified; R06.01 - Orthopnea (5) ESRD (end stage renal disease) Current Visit: Yes Status: Chronic Assessment and plan: On HD MWF (6) Atrial fibrillation Current Visit: Yes Status: Chronic Assessment and plan: Likely contributing to syncope - managed by primary - on eliquis Qualifiers: Atrial fibrillation type: chronic Qualified Code(s): I48.2 - Chronic atrial fibrillation (7) CHF (congestive heart failure) Current Visit: Yes Status: Chronic Assessment and plan: Diastolic - ECHO as above - managed by primary Qualifiers: Heart failure type: unspecified Heart failure chronicity: unspecified Qualified Code(s): I50.9 - Heart failure, unspecified (8) Frequent falls Current Visit: Yes Status: Acute Assessment and plan: NO acute fx noted XR hip 09/12 - Questionable nondisplaced fracture of the proximal right femur. CT imaging is recommended for complete assessment. CT hip 09/12 - No acute osseous injury of the pelvis or right hip. Palliative-CN HPI - Data of Consult Patient: new to practice Consult date: 09/14/18 Requesting Physician: Master Brody Primary Care Provider: Yoandy Martino - Consult Narrative Reason for consult: "patient needs hospice but still wants HD" History of present illness: Mr. Templeton is a 78 year old male with PMH of ESRD on HD MWF, end stage pulmonary fibosis, chronic respiraotry failure on home oxygen, CHF, and a fib. He presented on 09/12 at the request of his home health nurse. He was at home being checked out by nurse, whom he told about a recent fall. He had hip pain from it and she said to go get xrays to rule out fracture. He then wanted to get a shower before coming here and he said he passed out in the shower, hit his head against the shower wall. He was consulted for "needing hospice but wanting HD still." He is evaluated at bedside this morning. He does have complaints of decreasing functional status, he has a hard time completing his ADL's and it takes him a lot of extra time to do anything bc he gets so short of breath. He has also noticed he has had a decreased appetite but didn't note excessive weight loss. He sees [facility] as an outpatiet but hasn't seen them since June, when they gave him a six month prognosis. CC: Master Brody - Time Spent with Patient Time: Total time spent is greater than 50% in coordination of care (as documented) at patient's floor/unit and/or counseling patient: Time with patient: 30 minutes Past Med Surg Social Fam HX - Past Medical History Medical history: arthritis, cardiomyopathy, CHF, coronary artery disease, diabetes, dialysis, glaucoma, hyperlipidemia, hypertension, renal disease, syncope Additional medical history: MWF dialysis Psychiatric history: no psych history - Past Surgical History Additional surgical history: toe amputations. carpal tunnel release. trigger finger. 3 Fistulagrams. Left arm fistula. Reversal Shoulder repairs both. Right TKR - Social History Smoking Status: Former smoker Smokeless Tobacco Status: No Alcohol use: rarely Drug use: none - Family History Mother Adopted: No Family Member Ethnicity: Non- Living Status: Age at : 74 Cause of : heart Hx Family Cardiac Disorders: Yes (HTN) Hx Family Respiratory Disorders: No Hx Family Cancer: No Hx Family GI Disorders: No Hx Family Endocrine Disorder: No Hx Family Neuromuscular Disorders: No Hx Family Neurologic Disorders: No Hx Family HEENT Disorders: No Hx Family Autoimmune Disorders: No Father Family Member Ethnicity: Non- Living Status: Age at : 72 Cause of : heart Hx Family Cardiac Disorders: Yes Hx Family Endocrine Disorder: Yes (DM) Medications and Allergies Aspirin [Lo-Dose Aspirin EC] 81 mg PO DAILY 04/03/17 [History] Atorvastatin [Lipitor] 40 mg PO DAILY 04/03/17 [History] Cinacalcet [Sensipar] 30 mg PO DAILY 04/03/17 [History] Febuxostat [Uloric] 80 mg PO DAILY 04/03/17 [History] Insulin ASPART [NovoLOG] 5 unit SQ TIDWM 04/03/17 [History] Omeprazole [PriLOSEC] 40 mg PO DAILY 04/03/17 [History] Apixaban [Eliquis] 2.5 mg PO BID 09/12/18 [History] Latanoprost [Xalatan] 1 drop BOTH EYES HS 09/12/18 [History] Multivitamin,Stress Formula/Zn [Stress B with Zinc Tablet] 1 tab PO DAILY 09/12/18 [History] Allergy/AdvReac Type Severity Reaction Status Date / Time simvastatin AdvReac Intermediate Cramping Verified 04/03/17 15:30 of the Muscles allopurinol AdvReac Mild Cramping Verified 04/03/17 15:27 of the Muscles alteplase AdvReac Mild Cramping Verified 04/03/17 15:27 of the Muscles fenofibrate AdvReac Mild Cramping Verified 04/03/17 15:29 of the Muscles NAG Allergy See Uncoded 09/12/18 13:47 Comments - Constitutional Constitutional ROS PAL: decreased appetite, fatigue, frequent falls - Cardiovascular Cardiovascular ROS: no chest pain - Respiratory Respiratory: dyspnea, dyspnea on exertion - Gastrointestinal Gastrointestinal: no nausea, no vomiting - Genitourinary Genitourinary ROS male: difficulty urinating - Musculoskeletal Musculoskeletal ROS IM: arthralgias - Neurological Neurological ROS: frequent falls Palliative Care-Exam - Constitutional Vitals: Temp Pulse Resp BP Pulse Ox 97.6 F 91 18 100/63 90 09/14/18 07:15 09/14/18 07:15 09/14/18 07:15 09/14/18 07:15 09/14/18 07:15 General appearance: Present: obese - Head Head Exam: Present: atraumatic, normal inspection, normocephalic - Eye Eye exam: Present: normal appearance, sclera anicteric - ENT ENT exam: Present: mucous membranes moist - Respiratory Respiratory exam: Present: decreased breath sounds, prolonged expiratory phase - Expanded Respiratory Exam Location: decreased breath sounds: Upper, Lower, Left, Right - Cardiovascular Cardiovascular exam: Present: irregular rhythm. Absent: JVD - GI/Abdominal Exam GI/Abdominal exam: Present: soft. Absent: guarding, tenderness - Extremities Exam Extremities exam: Present: normal capillary refill, pedal edema. Absent: tenderness - Neurological Exam Neurological exam: Present: alert, CN II-XII intact, oriented X3 - Psychiatric Psychiatric exam: Present: normal affect, normal mood - Skin Skin exam: Present: dry, normal color Internal Medicine - CN: Reslt - Labs CBC & Chem 7: 09/14/18 07:44 09/14/18 07:44 Labs: Short CBC 09/14/18 Range/Units 07:44 WBC 18.0 H D (4.3-11.1) K/mcL Hgb 9.7 L (12.9-16.9) g/dL Hct 29.8 L (37.5-50.1) % Plt Count 218 (140-400) K/mcL BMP 09/14/18 07:44 Sodium 135 L Potassium 4.5 Chloride 95 L Carbon Dioxide 26 BUN 59 H Creatinine 6.55 H Glucose 278 H Calcium 9.4 - ABG Interpretation ABG results: PT/INR, D-dimer PT 17.3 Seconds (9.4-12.1) H 09/13/18 06:11 - Impressions Impressions Echocardiogram 09/12/18 17:02 Impressions: LVEF 60%. Mild left ventricular diastolic dysfunction. Normal right ventricular structure and function. No aortic stenosis. Moderate mitral annular calcification No mitral stenosis. No evidence of pulmonary hypertension. Left Ventricular Wall Motion: Rest Echo Findings All wall segments showed normal motion. Findings: Study Quality * Technically sub-optimal due to poor echocardiographic windows. ECG Findings * Normal sinus rhythm. Left Ventricle * LVEF 60%. * Mild left ventricular diastolic dysfunction. Right Ventricle * Normal right ventricular structure and function. Left Atrium * Mildly dilated left atrium. Right Atrium * Normal right atrial size. Interatrial Septum * Interatrial septum not well evaluated. Aortic Valve * Aortic valve not well visualized. * No aortic regurgitation. * No aortic stenosis. Mitral Valve * Moderate mitral annular calcification * No mitral regurgitation. * No mitral stenosis. Tricuspid Valve * Trace tricuspid regurgitation. * No tricuspid stenosis. * Normal tricuspid valve structure. * No evidence of pulmonary hypertension. Pulmonic Valve * Pulmonic valve not well visualized. Aorta * Normally sized aortic root. Pericardium * The pericardium appears normal. IVC * The IVC is not well evaluated. Pulmonary Artery * Pulmonary artery not well visualized. Consult Discharge Plan - Plan Referrals: Yoandy Martino [Primary Care Provider] - 09/22/18 8:40 am (please follow up as schedule....) Palliative Quality Palliative Quality: Screen for Code Status: Yes, Screen for Goals of Care: Yes, Screen for Pain: Yes, If Pain Regimen Started, Initiate Bowel Regimen: NA, Screen for Nausea/Vomitting: Yes Code Status: 09/12/18 16:57 Resuscitation Status: Active [RES] Routine Comment: Resuscitation Status: Full Code Resuscitation Status: Active [RES] Routine Comment: Resuscitation Status: DNR-Comfort Care Palliative Scale - Palliative Performance Scale How ambulatory is this patient?: Mainly in bed What is patient's level of activity and evidence of disease?: Unable to do most activity, Extensive disease How much self-care assistance does patient require?: Mainly assistance How much oral intake does the patient have?: Normal or reduced What is this patient's level of consciousness?: Full Palliative Performance Score: 60 % <Doreen Rock - Last Filed: 09/14/18 16:25> Date of Encounter: 09/14/18 Palliative-CN HPI - Data of Consult Requesting Physician: Master Brody Primary Care Provider: Yoandy Martino - Consult Narrative History of present illness: Mr. Templeton is a 78 year old male CC: Master Villanuevax - Time Spent with Patient Time: Total time spent is greater than 50% in coordination of care (as documented) at patient's floor/unit and/or counseling patient: Palliative Care-Exam - Constitutional Vitals: Temp Pulse Resp BP Pulse Ox 97.5 F L 91 18 131/73 92 09/14/18 12:44 09/14/18 07:15 09/14/18 15:36 09/14/18 12:44 09/14/18 15:36 Internal Medicine - CN: Reslt - Labs CBC & Chem 7: 09/14/18 07:44 09/14/18 07:44 Labs: Short CBC 09/14/18 Range/Units 07:44 WBC 18.0 H D (4.3-11.1) K/mcL Hgb 9.7 L (12.9-16.9) g/dL Hct 29.8 L (37.5-50.1) % Plt Count 218 (140-400) K/mcL BMP 09/14/18 07:44 Sodium 135 L Potassium 4.5 Chloride 95 L Carbon Dioxide 26 BUN 59 H Creatinine 6.55 H Glucose 278 H Calcium 9.4 - ABG Interpretation ABG results: PT/INR, D-dimer PT 17.3 Seconds (9.4-12.1) H 09/13/18 06:11 - Attending Attestation I performed a history and physical examination of the patient and discussed his management with the resident. I reviewed the residents note and agree with the documented findings and plan of care, except as follow: 78 years old male with history of ESRD on hemodialysis, and end-stage pulmonary fibrosis. Patient was examined in dialysis, on nasal cannula, stated to be feeling well. He stated that his breathing is okay as long as he does not try to move or exert himself, otherwise, his saturation drops so low that he passes out and falls. He presented after several episodes of fall at home. Complaining of pain on his left hip, CT exam showed no fracture. Discussed his current medical condition, trajectory of illness, treatment options and prognosis, as well as goals of care. He desires no intubation and no CPR, he decided to avoid any invasive measures. Patient is aware that his pulmonary fibrosis is terminal, but he stated he still wants to try to improve his strength and his breathing. Patient was seen today but PT and qualifies for subacute rehabilitation. As per patient he would like the short-term rehabilitation and return home with home-health. Patient made aware that he is hospice diagnosis is pulmonary fibrosis, and as such on hospice he can continue dialysis if he wishes so. However, patient is not ready for hospice at this time. Hip Pain: Tyleneol 600mg q4hrs prn Goals of care are clear, and there are no symptoms managed by palliative care. Palliative care signing off at this time please reconsult as needed. Palliative Quality Code Status: 09/12/18 16:57 Resuscitation Status: Active [RES] Routine Comment: Resuscitation Status: Full Code Resuscitation Status: Active [RES] Routine Comment: Resuscitation Status: DNR-Comfort Care
--- NOTE | 2018-09-14 17:22 | Electrocardiograph Report ---
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
[2018-09-14] MEDS: Latanoprost 2.5 ML BOTTLE BOTH EYES SCH (20:37)
[2018-09-15] MEDS: Ipratropium/Albuterol Neb 3 ML IH SCH ×7 (00:09→23:56)
[2018-09-15] MEDS: Vitamin B Complex/Vit C/Vit E 1 EACH TABLET PO SCH (08:23)
[2018-09-15] MEDS: predniSONE 20 MG TABLET PO SCH (08:23)
[2018-09-15] MEDS: Apixaban 2.5 MG TABLET PO SCH ×2 (08:23→20:11)
[2018-09-15] MEDS: Aspirin Enteric Coated 81 MG Tablet PO SCH (08:23)
[2018-09-15] MEDS: Febuxostat [Uloric] 80 MG PO SCH (08:24)
[2018-09-15] MEDS: Insulin LISPRO 300 UNITS/3 ML VIAL SQ SCH ×7 (08:26→20:12)
--- NOTE | 2018-09-15 10:34 | Nephrology Progress Note ---
Date of Encounter: 09/15/18 Time of Encounter: 10:32 - Assessment and Plan (1) ESRD (end stage renal disease) Current Visit: Yes Status: Chronic HD MWF. HD completed yesterday without complication. Plan for HD today. Renal vitamins. Renal dose medications. Renal diet. Additional dialysis and ultrafiltration as needed. (2) Pulmonary fibrosis Current Visit: Yes Status: Chronic Per the primary team. (3) Dyspnea Current Visit: Yes Status: Acute Per the primary team. Patient has history of pulmonary fibrosis. He denies chest pain. He does not appear to be in fluid overload. Qualifiers: Dyspnea type: shortness of breath Qualified Code(s): R06.02 - Shortness of breath; R06.00 - Dyspnea, unspecified; R06.01 - Orthopnea (4) Elevated troponin Current Visit: Yes Status: Chronic Per the primary team. He denies chest pain. (5) Diabetes mellitus Current Visit: Yes Status: Chronic Per the primary team. Qualifiers: Diabetes mellitus type: type 2 Diabetes mellitus assisted insulin use: with assisted use Diabetes mellitus complication status: with kidney complications Diabetes mellitus complication detail: with chronic kidney disease Chronic kidney disease stage: on chronic dialysis Qualified Code(s): E11.22 - Type 2 diabetes mellitus with diabetic chronic kidney disease; N18.6 - End stage renal disease; Z79.4 - snf (current) use of insulin; Z99.2 - Dependence on renal dialysis Subjective Principal diagnosis: difficulty in breathing Interval history: Pt seen and examined is sitting up in chair. Denies nausea, vomiting, or diarrhea. Denies chest pain admits to chronic shortness of breath. No acute events overnight. He tells me he is feeling better today he is awaiting ECF rehabilitation placement. Objective - Vital Signs Vital signs: Vital Signs Temp Pulse Resp BP Pulse Ox 09/15/18 07:45 73 18 146/74 98 09/15/18 07:44 18 96 09/15/18 04:49 97.5 F L 73 16 123/68 98 09/15/18 04:33 18 100 09/15/18 00:09 16 98 09/14/18 23:53 97.5 F L 87 16 105/77 95 09/14/18 20:43 96 09/14/18 20:11 16 96 09/14/18 19:50 98.1 F 88 16 144/60 96 09/14/18 16:41 97.8 F 74 22 132/69 96 09/14/18 15:36 18 92 09/14/18 12:44 97.5 F L 18 131/73 09/14/18 12:30 115/63 09/14/18 12:15 117/68 09/14/18 12:00 121/70 09/14/18 11:45 111/63 09/14/18 11:30 110/63 09/14/18 11:15 116/58 09/14/18 11:00 122/67 09/14/18 10:45 128/64 Intake and Output 09/14/18 09/15/18 09/15/18 23:59 07:59 15:59 Intake Total 0 / 0 0 / 0 Output Total 0 / 0 0 / 0 Balance 0 / 0 0 / 0 Intake: Oral 0 / 0 0 / 0 Output: Urine 0 / 0 0 / 0 Other: Blood Glucose* 232 170 - General Appearance General appearance: Present: well-developed, well-nourished EENT: Present: ATNC, hearing intact, vision intact Neck: Present: supple Respiratory: Present: clear, wheezing Cardiology: Present: no edema, normal S1, normal S2 Dialysis Vascular Access: Arteriovenous Fistula thrill: Yes bruit: Yes Gastrointestinal: Present: normoactive bowel sounds, no tenderness, no guarding Integumentary: Present: no rash, warm and dry Neurologic: Present: alert and oriented x3 Musculoskeletal: Present: no deformities, no erythema Psychiatric: Present: mood/affect appropriate, cooperative - Lab 09/14/18 07:44 09/14/18 07:44 Most recent lab results Calcium 9.4 mg/dL (8.6-10.3) 09/14/18 07:44 Consult Discharge Plan - Plan Referrals: Yoandy Martino [Primary Care Provider] - 09/22/18 8:40 am (please follow up as schedule....)
--- NOTE | 2018-09-15 10:50 | Internal Med Progress Note ---
Hospitalist Progress Note - Encounter Date of Encounter: 09/15/18 Time of Encounter: 10:50 - Subjective Interval History: Seen and evaluated at the bedside he has no new complains SOB has improved minimally Awaiting placement for rehab and is currently hemodynamically stable - Exam Vitals: Temp Pulse Resp BP Pulse Ox 97.5 F L 73 18 146/74 98 09/15/18 04:49 09/15/18 07:45 09/15/18 07:45 09/15/18 07:45 09/15/18 07:45 Exam: General: Alert, oriented X3, ambulatory HEENT:EOMI, pupils equal, round and reactive. Cardiovascular:Normal S1 & S2, No JVD Lungs: inspiratory crackles Abdomen:Soft, non-tender, no rigidity. Extremities:Chronic venous stasis changes Neurological:AAOX3, ambulatory, no gross deficits, no facial paralysis, speech is normal. Skin:Normal color, no rash, no lesions. Pulses:Carotid and radial pulses normal +2. Rest of the physical exam is non contributory - Assessment and Plan (1) Leukocytosis Current Visit: Yes Status: Acute Assessment and Plan: Initially improved, likely due to steroids Patient remains afebrile (2) Atrial fibrillation Current Visit: Yes Status: Chronic Assessment and Plan: HR controlled Continue home meds Anticoagulated with eliquis, continue same (3) CHF (congestive heart failure) Current Visit: Yes Status: Chronic Assessment and Plan: Patient stated hx of CHF No records here ECHO noted-EF is preserved, no significant valvular or wall motion abnormality Continue current meds, euvolemic at this time, continue HD per renal (4) CAD (coronary artery disease) Current Visit: Yes Status: Chronic Assessment and Plan: Continue ASA, Statin (5) Syncope Current Visit: Yes Status: Acute Assessment and Plan: Likley due to episodes of worsening hypoxia EKG noted, PVC, LAD, no ST segment changes or TWI ECHO unremarkable, Carotid USS with non-stenotic plaques bilaterally head CT unremarkable Patient with no neuro deficits at this time (6) Pulmonary fibrosis Current Visit: Yes Status: Chronic Assessment and Plan: Patient with known Pulm fibrosis with flare On chronic home O2, has been having increasing O2 requirement Continue O2, continue prednisone, continue duonebs (7) ESRD (end stage renal disease) Current Visit: Yes Status: Chronic Assessment and Plan: HD per schedule Continue home meds (8) Elevated troponin Current Visit: Yes Status: Chronic Assessment and Plan: Chronic troponin from 07/2018 ER visit was 0.054 troponin here 0.06X3, no chest pain, EKG and ECHO unremarkable (9) Diabetes mellitus Current Visit: Yes Status: Chronic Assessment and Plan: FS ACHS SSI ADA diet Levemir HS (10) Frequent falls Current Visit: Yes Status: Acute Assessment and Plan: Fall precautions For rehab placement prn DVT Prophylaxis: On eliquis - Time Spent with Patient Total time spent is greater than 50% in coordination of care (as documented) at patient's floor/unit and/or counseling patient: Plan of Care Discussed with: patient Internal Medicine: Result - Labs CBC & Chem 7: 09/14/18 07:44 09/14/18 07:44 - ABG Interpretation ABG results: PT/INR, D-dimer PT 17.3 Seconds (9.4-12.1) H 09/13/18 06:11 Consult Discharge Plan - Plan Referrals: Yoandy Martino [Primary Care Provider] - 09/22/18 8:40 am (please follow up as schedule....) (1) Leukocytosis Qualifiers: Leukocytosis type: unspecified Qualified Code(s): D72.829 - Elevated white blood cell count, unspecified (2) Atrial fibrillation Qualifiers: Atrial fibrillation type: chronic Qualified Code(s): I48.2 - Chronic atrial fibrillation (3) CHF (congestive heart failure) Qualifiers: Heart failure type: unspecified Heart failure chronicity: unspecified Qualified Code(s): I50.9 - Heart failure, unspecified (4) CAD (coronary artery disease) Qualifiers: Coronary Disease-Associated Artery/Lesion type: [place] artery [place] vs. 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
[2018-09-15] MEDS: Latanoprost 2.5 ML BOTTLE BOTH EYES SCH (20:11)
[2018-09-16] MEDS: Ipratropium/Albuterol Neb 3 ML IH SCH ×4 (03:44→16:24)
[2018-09-16 05:50] LABS: Albumin 3.6 g/dL (3.5-5.7); Calcium 8.8 mg/dL (8.6-10.3); Potassium 4.5 mEq/L (3.5-5.1)
[2018-09-16] MEDS: Aspirin Enteric Coated 81 MG Tablet PO SCH (08:05)
[2018-09-16] MEDS: predniSONE 20 MG TABLET PO SCH (08:05)
[2018-09-16] MEDS: Insulin LISPRO 300 UNITS/3 ML VIAL SQ SCH ×6 (08:05→17:08)
[2018-09-16] MEDS: Vitamin B Complex/Vit C/Vit E 1 EACH TABLET PO SCH (08:06)
[2018-09-16] MEDS: Febuxostat [Uloric] 80 MG PO SCH (08:06)
[2018-09-16] MEDS: Apixaban 2.5 MG TABLET PO SCH (08:06)
--- NOTE | 2018-09-16 09:18 | Nephrology Progress Note ---
Addendum entered and electronically signed by Thomas Wasserman MD 09/16/18 13:06: I examined this patient and discussed the medical decision-making with CASSANDRA Paniagua. I agree with the documented findings, disposition and treatment plan as described except to the extent set forth below. Patient seems to be doing well. Plan for dialysis today. Okay for discharge from a renal standpoint. Original Note: Date of Encounter: 09/16/18 Time of Encounter: 09:16 - Assessment and Plan (1) ESRD (end stage renal disease) Current Visit: Yes Status: Chronic HD MWF. HD ordered for today. Renal vitamins. Renal dose medications. Renal diet. Additional dialysis and ultrafiltration as needed. (2) Pulmonary fibrosis Current Visit: Yes Status: Chronic Per the primary team. (3) Dyspnea Current Visit: Yes Status: Acute Per the primary team. Patient has history of pulmonary fibrosis. He denies chest pain. He does not appear to be in fluid overload. Qualifiers: Dyspnea type: shortness of breath Qualified Code(s): R06.02 - Shortness of breath; R06.00 - Dyspnea, unspecified; R06.01 - Orthopnea (4) Elevated troponin Current Visit: Yes Status: Chronic Per the primary team. He denies chest pain. (5) Diabetes mellitus Current Visit: Yes Status: Chronic Per the primary team. 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 Denies nausea, vomiting, or diarrhea. Denies chest pain admits to chronic shortness of breath. No acute events overnight. Referral has been made for rehab placement, awaiting approval. Objective - Vital Signs Vital signs: Vital Signs Temp Pulse Resp BP Pulse Ox 09/16/18 07:36 20 91 09/16/18 07:12 97.5 F L 87 22 117/59 89 09/16/18 04:26 97.4 F L 79 18 135/57 96 09/16/18 03:44 22 94 09/15/18 23:56 22 95 09/15/18 23:29 98.4 F 78 18 148/67 90 09/15/18 20:00 95 09/15/18 19:51 20 92 09/15/18 19:29 97.7 F 95 26 154/72 90 09/15/18 16:18 97.9 F 73 22 156/69 98 09/15/18 15:56 18 94 09/15/18 11:16 18 94 Intake and Output 09/15/18 09/16/18 09/16/18 23:59 07:59 15:59 Output Total 220 / 220 Balance -220 / -220 Output: Urine 220 / 220 Other: Blood Glucose* 299 128 - General Appearance General appearance: Present: well-developed, well-nourished EENT: Present: ATNC, hearing intact, vision intact Neck: Present: supple Respiratory: Present: clear Cardiology: Present: no edema, normal S1, normal S2 Dialysis Vascular Access: Arteriovenous Fistula thrill: Yes bruit: Yes Gastrointestinal: Present: normoactive bowel sounds, no tenderness, no guarding Integumentary: Present: no rash, warm and dry Neurologic: Present: alert and oriented x3 Musculoskeletal: Present: no deformities, no erythema Psychiatric: Present: mood/affect appropriate, cooperative - Lab 09/14/18 07:44 09/16/18 05:13 Most recent lab results Calcium 8.8 mg/dL (8.6-10.3) 09/16/18 05:13 Phosphorus 5.0 mg/dL (2.7-4.5) H 09/16/18 05:13 Consult Discharge Plan - Plan Referrals: Yoandy Martino [Primary Care Provider] - 09/22/18 8:40 am (please follow up as schedule....)
[2018-09-16] MEDS ORDERED: 0.9 % Sodium Chloride 250 ML IVC PRN ×2 (09:54→09:58)
[2018-09-16] MEDS ORDERED: 0.9 % Sodium Chloride 1,000 ML PRIME SCH (10:00)
--- NOTE | 2018-09-16 11:41 | Internal Med Progress Note ---
Hospitalist Progress Note - Encounter Date of Encounter: 09/16/18 Time of Encounter: 11:41 - Subjective Interval History: Seen and evaluated at the bedside he has no new complains SOB has improved significantly He is requesting to see Dr. Krishnamurthy because he sees him outpatient Awaiting placement for rehab and is currently hemodynamically stable - Exam Vitals: Temp Pulse Resp BP Pulse Ox 97.5 F L 87 18 117/59 97 09/16/18 07:12 09/16/18 07:12 09/16/18 11:12 09/16/18 07:12 09/16/18 11:12 Exam: General: Alert, oriented X3, ambulatory HEENT:EOMI, pupils equal, round and reactive. Cardiovascular:Normal S1 & S2, No JVD Lungs: inspiratory crackles Abdomen:Soft, non-tender, no rigidity. Extremities:Chronic venous stasis changes Neurological:AAOX3, ambulatory, no gross deficits, no facial paralysis, speech is normal. Skin:Normal color, no rash, no lesions. Pulses:Carotid and radial pulses normal +2. Rest of the physical exam is non contributory - Assessment and Plan (1) Leukocytosis Current Visit: Yes Status: Acute Assessment and Plan: Initially improved, likely due to steroids Patient remains afebrile, SOB is improved, continue to monitor (2) Atrial fibrillation Current Visit: Yes Status: Chronic Assessment and Plan: HR controlled Continue home meds Anticoagulated with eliquis, continue same (3) CHF (congestive heart failure) Current Visit: Yes Status: Chronic Assessment and Plan: Patient stated hx of CHF ECHO noted-EF is preserved, no significant valvular or wall motion abnormality Continue current meds, euvolemic at this time, continue HD per renal (4) CAD (coronary artery disease) Current Visit: Yes Status: Chronic Assessment and Plan: Continue ASA, Statin (5) Syncope Current Visit: Yes Status: Acute Assessment and Plan: Likley due to episodes of worsening hypoxia EKG noted, PVC, LAD, no ST segment changes or TWI ECHO unremarkable, Carotid USS with non-stenotic plaques bilaterally head CT unremarkable Patient with no neuro deficits at this time (6) Pulmonary fibrosis Current Visit: Yes Status: Chronic Assessment and Plan: Patient with known Pulm fibrosis with flare On chronic home O2, has been having increasing O2 requirement Continue O2, continue prednisone (begin to taper), continue duonebs (7) ESRD (end stage renal disease) Current Visit: Yes Status: Chronic Assessment and Plan: HD per schedule Continue home meds (8) Elevated troponin Current Visit: Yes Status: Chronic Assessment and Plan: Chronic troponin from 07/2018 ER visit was 0.054 troponin here 0.06X3, no chest pain, EKG and ECHO unremarkable (9) Diabetes mellitus Current Visit: Yes Status: Chronic Assessment and Plan: FS ACHS SSI ADA diet Levemir HS (10) Frequent falls Current Visit: Yes Status: Acute Assessment and Plan: Fall precautions For rehab placement , SW on board DVT Prophylaxis: On eliquis - Time Spent with Patient Total time spent is greater than 50% in coordination of care (as documented) at patient's floor/unit and/or counseling patient: Plan of Care Discussed with: patient Internal Medicine: Result - Labs CBC & Chem 7: 09/14/18 07:44 09/16/18 05:13 Labs: BMP 09/16/18 05:13 Sodium 137 Potassium 4.5 Chloride 99 Carbon Dioxide 24 BUN 83 H Creatinine 7.17 H Glucose 135 H Calcium 8.8 Liver Function 09/16/18 Range/Units 05:13 Albumin 3.6 (3.5-5.7) g/dL - ABG Interpretation ABG results: PT/INR, D-dimer PT 17.3 Seconds (9.4-12.1) H 09/13/18 06:11 Consult Discharge Plan - Plan Referrals: Yoandy Martino [Primary Care Provider] - 09/22/18 8:40 am (please follow up as schedule....) (1) Leukocytosis Qualifiers: Leukocytosis type: unspecified Qualified Code(s): D72.829 - Elevated white blood cell count, unspecified (2) Atrial fibrillation Qualifiers: Atrial fibrillation type: chronic Qualified Code(s): I48.2 - Chronic atrial fibrillation (3) CHF (congestive heart failure) Qualifiers: Heart failure type: diastolic Heart failure chronicity: chronic Qualified Code(s): I50.32 - Chronic diastolic (congestive) heart failure (4) CAD (coronary artery disease) Qualifiers: Coronary Disease-Associated Artery/Lesion type: [place] artery [place] vs. 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
--- NOTE | 2018-09-16 15:29 | Physician Discharge Referral ---
ExtendedCare Referral Info Transfer To: [facility] Provider in Charge: Nirmal Regalado Provider in Charge after Transfer: PCP Institutional Level of Care: Skilled - Diagnosis (1) Leukocytosis Priority: Primary Status: Acute (2) Atrial fibrillation Priority: Secondary Status: Chronic (3) CHF (congestive heart failure) Priority: Secondary Status: Chronic (4) CAD (coronary artery disease) Priority: Secondary Status: Chronic (5) Syncope Priority: Primary Status: Acute (6) Pulmonary fibrosis Priority: Secondary Status: Chronic (7) ESRD (end stage renal disease) Priority: Secondary Status: Chronic (8) Elevated troponin Priority: Primary Status: Chronic (9) Diabetes mellitus Priority: Secondary Status: Chronic (10) Frequent falls Priority: Primary Status: Acute Prognosis: Fair Aware of Diagnosis: Patient, Family Aware of Prognosis: Patient, Family - Transfer Medications Home Medications: Aspirin [Lo-Dose Aspirin EC] 81 mg PO DAILY 04/03/17 [History] Atorvastatin [Lipitor] 40 mg PO DAILY 04/03/17 [History] Cinacalcet [Sensipar] 30 mg PO DAILY 04/03/17 [History] Febuxostat [Uloric] 80 mg PO DAILY 04/03/17 [History] Insulin ASPART [NovoLOG] 5 unit SQ TIDWM 04/03/17 [History] Omeprazole [PriLOSEC] 40 mg PO DAILY 04/03/17 [History] Apixaban [Eliquis] 2.5 mg PO BID 09/12/18 [History] Latanoprost [Xalatan] 1 drop BOTH EYES HS 09/12/18 [History] Multivitamin,Stress Formula/Zn [Stress B with Zinc Tablet] 1 tab PO DAILY 09/12/18 [History] predniSONE [PredniSONE] 20 mg PO DAILY tablet 09/16/18 [Rx] Allergies/Adverse Reactions: Allergy/AdvReac Type Severity Reaction Status Date / Time simvastatin AdvReac Intermediate Cramping Verified 04/03/17 15:30 of the Muscles allopurinol AdvReac Mild Cramping Verified 04/03/17 15:27 of the Muscles alteplase AdvReac Mild Cramping Verified 04/03/17 15:27 of the Muscles fenofibrate AdvReac Mild Cramping Verified 04/03/17 15:29 of the Muscles NAG Allergy See Uncoded 09/12/18 13:47 Comments - Respiratory Orders Oxygen / L per min Smoking Cessation: Smoking cessation has been advised. For more information, call the [place] Tobacco Quit Line at 8-762-OQVN-NOW. - Advance Directives Code Status: DNR-Comfort Care - Rehabiliation Orders Rehab Potential: Fair - Diet Orders Renal, Cardiac CERTIFICATION: I certify that the transfer of the above named patient to an Extended Care Facility is necessary for the continuing treatment of the diagnosis listed. The above information is true and accurate reflection of patient's current condition. Confidential - Redisclosure prohibited without a patient's written consent.
[2018-09-16 16:48] VITALS: BP 181/76
[2018-09-17] MEDS ORDERED: predniSONE 20 MG TABLET PO SCH (09:00)
== END 2018-09-16 18:08 | disposition home health service (06) | DRG 196 ==
LOC: EMEROOARM 13:31 → SUATTDRO 18:26 → 2ANU 18:26
PROVIDERS: ADMIT Hospitalist; ATTEND Internal Medicine